=== PATIENT | female | born 1960 | race Caucasian/White ===

== ENCOUNTER → 2018-12-17 | Outpatient (CLI) | payer BC ==
[2016-11-12 11:23] VITALS: BP 140/83
[~2018-12-17] MED LIST: CYCL-331 PO; TRAM-48 PO
--- NOTE | 2018-12-17 16:39 | RAD ---
DATE: 12/17/2018 EXAM: MAMMO IRLANDA SCREENING BILATERAL HISTORY: Routine screening COMPARISON: 01/23/2016 This study was interpreted with the benefit of Computerized Aided Detection (CAD). Breast Density: HETERO The breast parenchyma is heterogenously dense, which could reduce sensitivity of mammography. Breast parenchyma level C. FINDINGS: 2-D and 3-D tomosynthesis imaging was performed in CC and MLO projections. No new or enlarging breast densities are seen. No suspicious microcalcifications are evident. IMPRESSION: Stable mammograms without evidence of malignancy. BI-RADS CATEGORY: 1 NEGATIVE RECOMMENDED FOLLOW-UP: 12M 12 MONTH FOLLOW-UP PQRS compliance statement: Patient information was entered into a reminder system with a target due date for the next mammogram. Mammography is a sensitive method for finding small breast cancers, but it does not detect them all and is not a substitute for careful clinical examination. A negative mammogram does not negate a clinically suspicious finding and should not result in delay in biopsying a clinically suspicious abnormality. "Our facility is accredited by the [employer] Mammography Program."
== END | disposition home or self-care (01) ==
LOC: MAMMO 15:26
PROVIDERS: ATTEND Family Medicine
DX: Z12.31 Encounter for screening mammogram for malignant neoplasm of breast (principal)
CPT/HCPCS: 77063; 77067

== ENCOUNTER → 2019-12-31 | Outpatient (CLI) | payer OTHER ==
[2016-11-12 11:23] VITALS: BP 140/83
--- NOTE | 2019-12-31 16:27 | RAD ---
3 view study of the right ribs and PA view chest x-ray Clinical indications: Right rib pain. COMPARISON: November 12, 2016 chest x-ray. FINDINGS: No acute right rib fracture is evident. Chest x-ray demonstrates no lung infiltrate or pleural effusion or pulmonary edema or pneumothorax evident. Heart size and pulmonary vasculature and mediastinum and both [place] are stable. IMPRESSION: No acute fracture. Electronically signed by: Delgado Blackmon MD (12/31/2019 4:24 PM) [id number]
== END | disposition home or self-care (01) ==
LOC: PMG 10:08
PROVIDERS: ATTEND Registered Nurse
DX: R07.81 Pleurodynia (principal)
CPT/HCPCS: 71101